=== PATIENT | male | born 1945 | race Two or more races ===

== ENCOUNTER 2020-12-08 11:25 | Emergency (ER) | payer OTHER ==
[~2020-12-08] VITALS: Ht 175.3 cm; Wt 87.1 kg
[2020-12-08] MEDS ORDERED: COZAAR50 MG PO (11:43)
[2020-12-08] MEDS ORDERED: CARDURA XL4 MG PO (11:43)
[2020-12-08] MEDS ORDERED: TOPROL XL50 M1 PO (11:43)
== END 2020-12-08 14:10 | disposition home or self-care (01) ==
LOC: ER 11:25
DX: R33.8 Other retention of urine (principal)

== ENCOUNTER 2020-12-18 10:30 | Inpatient (IN) | payer OTHER ==
[~2020-12-18] VITALS: Ht 175.3 cm; Wt 86.2 kg
[~2020-12-18 10:30] MED LIST: CARDURA XL4 MG PO; COZAAR50 MG PO; TOPROL XL50 M1 PO
[2020-12-18] MEDS ORDERED: PROSCAR5 MG PO (14:07)
[2020-12-20] MEDS ORDERED: FINASTERIDE5 MG (14:44)
[2020-12-20] MEDS ORDERED: FUSION PLUS CA1 EACH (14:44)
[2020-12-20] MEDS ORDERED: HYDROCHLOROTH12.5 MG (14:44)
[2020-12-20] MEDS ORDERED: BACTRIM DS TAB1 EACH (14:44)
[2020-12-20] MEDS ORDERED: TAMSULOSIN HCL0.4 MG (14:44)
[2020-12-20] MEDS ORDERED: ST. JOSEPH ASPI81 M2 (14:45)
== END 2020-12-21 11:23 | disposition home or self-care (01) | DRG 714 ==
LOC: SURH 12-20 10:30 → O/R 12-20 11:15 → SURH 12-20 14:30 → O/R 12-21 11:23
PROVIDERS: ADMIT Urology; ATTEND Urology
PROC: 0VB08ZX Excision of Prostate, Via Natural or Artificial Opening Endoscopic, Diagnostic (ICD-10-PCS; 2020-12-20)
PROC: 0VT08ZZ Resection of Prostate, Via Natural or Artificial Opening Endoscopic (ICD-10-PCS; principal; 2020-12-20 14:30)
DX: N40.1 Benign prostatic hyperplasia with lower urinary tract symptoms (principal); Z20.822 Contact with and (suspected) exposure to COVID-19; E11.9 Type 2 diabetes mellitus without complications; I10 Essential (primary) hypertension

== ENCOUNTER → 2020-12-25 10:38 | Outpatient (CLI) | payer OTHER ==
[~2020-12-25 10:38] MED LIST changes: +BACTRIM DS TAB1 EACH; +FINASTERIDE5 MG; +FUSION PLUS CA1 EACH; +HYDROCHLOROTH12.5 MG; +PROSCAR5 MG PO; +ST. JOSEPH ASPI81 M2; +TAMSULOSIN HCL0.4 MG
== END | disposition home or self-care (01) ==
LOC: LAB 10:38
PROVIDERS: ATTEND Urology
DX: D62 Acute posthemorrhagic anemia (principal)